=== PATIENT | female | born 1990 | race American Indian/Alaskan Native ===

== ENCOUNTER 2022-04-22 11:51 | Emergency (ER) | payer MEDICARE ==
[2022-04-22] MEDS ORDERED: SUCRALFATE 1 GM/10 ML ORAL LIQD PO ONE (15:24)
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
[2022-04-22 16:15] LABS: Color,Urine Yellow (Yellow)
[2022-04-22 16:16] LABS: Mucus,Urine FEW /HPF
[2022-04-22 16:24] LABS: Hemoglobin 13.9 gm/dl (10.1-14.3); Mean Corpuscular HGB Conc 33 % (30-34); Mean Corpuscular Volume 92 fl (79-97); Platelet Count 238 K/mm3 (140-440); Red Blood Count 4.55 M/mm3 (3.65-5.03); Red Cell Distribution Width 13.6 % (13.2-15.2)
[2022-04-22 16:42] LABS: Albumin 4.8 g/dL (3.9-5); Calcium 10.1 mg/dL (8.4-10.2)
--- NOTE | 2022-04-22 17:54 | XRay Report ---
CHEST 1 VIEW 04/22/2022 4:43 PM INDICATION / CLINICAL INFORMATION: Right upper quadrant abdominal pain. COMPARISON: None available. FINDINGS: SUPPORT DEVICES: None. HEART / MEDIASTINUM: No significant abnormality. LUNGS / PLEURA: No significant pulmonary or pleural abnormality. No pneumothorax. ADDITIONAL FINDINGS: No significant additional findings. IMPRESSION: 1. No acute findings. Signer Name: Audra Servin MD Signed: 04/22/2022 5:50 PM Workstation Name: [id number]
[2022-04-22 18:56] VITALS: BP 132/86
--- NOTE | 2022-04-24 16:51 | Electrocardiograph Report ---
[facility] Test Date: 2022-04-22 Test Time: 15:26:50 Pat Name: KENJI RODRIGUEZ Department: Room: Gender: F [employer]: GP : 1990 Requested By: NIKKO VILLELA Order Number: [id number] Reading MD: Nyla Steiner Measurements Intervals [place] Rate: 95 P: 76 IA: 163 QRS: 41 QRSD: 72 T: 47 QT: 337 QTc: 424 Interpretive Statements Sinus rhythm No previous ECG available for comparison Electronically Signed On 04-24-2022 16:51:05 EDT by Nyla Steiner
== END 2022-04-22 18:55 | disposition home or self-care (01) ==
LOC: ED 11:51
DX: R10.9 Unspecified abdominal pain (principal); R39.11 Hesitancy of micturition; Z88.8 Allergy status to other drugs, medicaments and biological substances; Z79.899 Other long term (current) drug therapy
CPT/HCPCS: 36415; 71045; 80053; 80320; 81001; 83690; 84702; 85027; 87806; 93005; 99283; G0480